=== PATIENT | male | born 1990 | race Caucasian/White ===

== ENCOUNTER 2017-05-15 08:08 | Emergency (ER) | payer OTHER ==
[~2017-05-15] VITALS: Ht 182.9 cm; Wt 68.2 kg
[2017-05-15 08:11] VITALS: BP 120/79; PULSE 74; RESP 16; O2SAT 100
[2017-05-15] MEDS ORDERED: 0.9% Sodium Chloride 1,000 ML IV ONE ×3 (08:30→13:20)
[2017-05-15] MEDS ORDERED: Ondansetron 2 mg/mL 2 mL Inj IVPUSH ONE ×2 (08:30→12:45)
--- NOTE | 2017-05-15 08:34 | ED.REPORT ---
HPI-Abd Pain M Under 40 Date of Service May 15, 2017 ED Provider: Wendy Acevedo MD Patient is a 26-year-old man with no significant past medical history who presents to the emergency department with acute onset vomiting and tight feeling abdominal pain with radiation into his throat that started this morning. She has associated chills, nausea, lightheadedness, and feels like it is difficult to take a deep breath. He had similar symptoms approximately 3 years ago at which time he was not using marijuana daily. He describes his pain as epigastric radiating up into his throat. The pain briefly improved after vomiting however worsens again when he tries to stand up or lay down. He did have one softer than normal stool this morning. He has no headache, visual changes, hematemesis Nursing Notes Stated Complaint: VOMITING Chief Complaint: Male Abdominal Pain Nursing Notes Reviewed: Yes Allergies: Coded Allergies: cyclobenzaprine (Verified Allergy, Unknown, restless, 05/15/17) Scheduled PRN Ondansetron ODT (Ondansetron ODT) 4 Mg Tab.rapdis 4 MG PO BID PRN PRN For Nausea General Time Seen by MD: 08:15 Chief Complaint Abdominal pain, Vomiting moderate Hx Obtained From: Patient Arrived By: Walk-in Sudden in Onset?: Yes Onset Occurred: Just prior to arrival Past Medical History Past Medical History Denies Past Surgical History Denies Family History No known family history of heart disease or early NM Smoking History Former Smoker Social History Alcohol Use: "Social" Drug Use: THC Ambulatory Status Independent Review of Systems A comprehensive review of systems was conducted with the patient and found to be negative except as above in the History of Present Illness. Physical Exam Initial Vital Signs Vital Signs (First) Date Time Temp Pulse Resp B/P Pulse Ox O2 Delivery O2 Flow Rate FiO2 05/15/17 08:11 36.6 74 16 120/79 100 05/15/17 12:51 Room Air Initial VS: Reviewed, Vital signs normal Head / Eyes: Atraumatic, Normocephalic, PERRL ENT: Mucous membranes moist, Conjunctiva normal, No scleral icterus Neck: Supple, Non-tender Lymphatic: No lymphadenopathy Extremities: Vascular intact, Neuro intact, No swelling, No tenderness Skin: Warm, No cyanosis Neurologic: Alert, Oriented, Nonfocal Psychiatric: Mood/affect normal, Behavior normal, Normal thought content General/Constitutional: Awake, Alert Distress / Hydration: Positive: Distress moderate (dry heaving with some emesis during exam) Respiratory / Chest: Breath sounds NL, Breath sounds = bilat, No respiratory distress, No rales, No rhonchi, No wheezing, No stridor Cardiovascular: Heart rate NL, Regular rhythm, Heart sounds NL Abdomen: Atraumatic, Soft Tenderness/Guarding/Rebound: Positive: Guarding voluntary, Tender diffuse Interpretation & Diagnostics Leukocytosis of 13.4 with left shift. Glucose elevated at 163, likely a stress reaction. Lipase normal 21. Hepatic and renal function are normal on CMP. Lab Results Interpretation Result Diagram: 05/15/17 0915 05/15/17 0915 Test 05/15/17 09:15 05/15/17 10:50 White Blood Count 13.4th/mm3 (3.8-10.1) Red Blood Count 5.46mil/mm3 (4.40-5.80) Hemoglobin 16.6g/dL (13.8-17.2) Hematocrit 46.3% (41.0-50.0) Mean Corpuscular Volume 84.8fL (81-100) Mean Corpuscular Hemoglobin 30.4pg (27.0-35.0) Mean Corpuscular Hemoglobin Concent 35.9% (32.0-37.0) Red Cell Distribution Width 12.4% (12.3-15.4) Platelet Count 258bil/L (150-400) Neutrophils (%) (Auto) 85.1% (40-74) Lymphocytes (%) (Auto) 11.0% (14-46) Monocytes (%) (Auto) 3.3% (4-12) Eosinophils (%) (Auto) 0.3% (0-5) Basophils (%) (Auto) 0.1% (0-3) Sodium Level 141mEq/L (134-144) Potassium Level 4.8mEq/L (3.5-5.2) Chloride Level 102mEq/L (97-108) Carbon Dioxide Level 24mmol/L (18-29) Blood Urea Nitrogen 16mg/dL (6-20) Creatinine 0.82mg/dL (0.76-1.27) Estimat Glomerular Filtration Rate 122mL/min (>59) Glucose Level 163mg/dL (60-99) Calcium Level 9.9mg/dL (8.5-10.1) Total Bilirubin 0.3mg/dL (0.0-1.2) Aspartate Amino Transf (AST/SGOT) 26U/L (0-50) Alanine Aminotransferase (ALT/SGPT) 28U/L (0-44) Alkaline Phosphatase 75U/L (25-150) Total Protein 8.2g/dL (6.4-8.4) Albumin 5.0g/dL (3.4-5.0) Lipase 21U/L (13-60) Urine Color Yellow (YELLOW) Urine Appearance Hazy (CLEAR,HAZY) Urine pH 6.5 (5.0-8.0) Urine Specific [place] 1.025 (1.003-1.035) Urine Protein Tracemg/dL (NEG,TRACE) Urine Glucose (UA) Negativemg/dL (NEGATIVE) Urine Ketones Negativemg/dL (NEGATIVE) Urine Occult Blood Trace (NEGATIVE) Urine Nitrite Negative (NEGATIVE) Urine Bilirubin Negative (NEGATIVE) Urine Urobilinogen Normalmg/dL (NORMAL) Urine Leukocyte Esterase Negative (NEGATIVE) Urine RBC 3-10/hpf (0-2) Urine WBC 0-5/hpf (0-5) Urine Epithelial Cells Occasional/hpf (NONE-MOD) Urine Crystals None seen (NONE SEEN) Urine Bacteria None/hpf (NONE-FEW) Urine Hyaline Casts Occasional/lpf (NONE) Urine Granular Casts None seen (NONE SEEN) Urine Waxy Casts None seen (NONE SEEN) Urine Red Blood Cell Casts None seen (NONE SEEN) Urine White Blood Cell Casts None seen (NONE SEEN) Urine Mucus Present (None Seen) Urine Trichomonas None seen (NONE SEEN) Urine Yeast None (NONE SEEN) Urinalysis Comment None Urine Culture Reflexed Not indicated Hold Urine Received (Received) CT Abd / Pelvis Interpretation 1. No acute intra-abdominal findings. Normal appendix. 2. Mild periportal edema and trace pericholecystic fluid without gallbladder wall thickening. Study type: Abdominal CT IV contrast, Abdom CT oral contrast Interpretation / Wet Read by: Interpret - Radiologist Re-Eval/Medical Decision Med Decision/Clinical Course Patient is a 26-year-old man with no significant past medical history who presents to the emergency department with acute onset vomiting and tight feeling abdominal pain with radiation into his throat that started this morning. Laboratory evaluation shows normal transaminases and lipase. He has a mild leukocytosis with left shift. CT scan shows no evidence of acute appendicitis. There is some mild pericholecystic fluid, non-thickened gallbladder wall with normal LFTs making acute cholecystitis or hepatitis unlikely. Lipase was measured to be normal making acute pancreatitis less likely. Patient is most likely having an episode of gastroenteritis. He has been given 3 L of fluid, Phenergan, Zofran, and Dilaudid. He was offered overnight hospitalization for observation due to his nausea and vomiting and declined. Precautions for returning to the emergency department with hematemesis or unimproved symptoms in 72 hours were given. Patient encouraged to schedule primary care appointment before the end of the week. Re-Evaluation/Progress #1: Time of Eval: 09:30 )( Re-Eval Abdomen: No distention, Tenderness, Guarding (voluntary) Re-Evaluation/Progress Note: Patient had no change with time, still has 10/10 abdominal pain. Re-Evaluation/Progress #2: Time of Eval: 10:15 )( Re-Eval Abdomen: Tenderness, Guarding Re-Evaluation/Progress Note: Patient treated with Zofran, Protonix, and 0.5 mg Dilaudid without significant improvement. Patient continues to have chills, feels sick, and is having small volume yellow colored emesis as well. CT scan with oral contrast ordered. Re-Evaluation/Progress #3: Time of Eval: 14:00 Re-Evaluation/Progress Note: Patient is still having nausea and 10/10 abdominal pain. Briefly decreased down to 8/10 but has now increased again. Counseled Regarding: Diagnosis, Lab results, Need for follow-up, When/why to return to ED Patient Discharge & Departure Shift Change Sign-Out Response to Therapy: Improved Primary Impression: Epigastric pain Additional Impression: Nausea & vomiting Vomiting type: bilious vomiting Qualified Code: R11.14 - Bilious vomiting Disposition: Home Discharge Condition All VS Reviewed: Yes Condition: Stable Patient Instructions: Acute Abdominal Pain (ED) Additional Instructions: Thank you for entrusting us with your care today. You have a mildly elevated white blood cell count. Your CT scan shows no acute intra-abdominal findings and normal appendix. You do have some inflammation in your right upper quadrant. There is no need for surgical intervention at this time. You were offered hospital admission for monitoring and declined. Please do not hesitate to return to the emergency department if symptoms do not improve in 48-72 hours or you notice blood in your vomit. Please follow up by the end of the week at the residency clinic. I hope you feel better soon. Referrals: [facility] Attending Statement Patient seen and examined with Dr. Delgado Nausea vomiting abdominal pain and elevated white blood cell count. CT scan does not suggest significant pathology specifically no appendicitis no diverticulitis. There is a small amount of fluid around his gallbladder however a non-thickened gallbladder wall and normal LFTs. We will be discharged home at this point. Diagnosis of gastroenteritis. Will return if symptoms worsen Agree with Findings and documentation as above copies to: [facility] Sammi Delgado DO May 15, 2017 08:34 Wendy Acevedo MD May 15, 2017 15:16
[2017-05-15] MEDS ORDERED: HYDROmorphone 0.5 mg/0.5 mL iSecure Syringe IVPUSH ONE (08:50)
[2017-05-15] MEDS ORDERED: Pantoprazole 4 mg/mL 10 mL Inj IVPUSH ONE (08:50)
[2017-05-15 09:29] LABS: BASOPHILS % (AUTO) 0.1 % (0-3); EOSINOPHILS % (AUTO) 0.3 % (0-5); MONOCYTES % (AUTO) 3.3 % (4-12); Mean Corpuscular Hemoglobin 30.4 pg (27.0-35.0); Mean Corpuscular Volume 84.8 fL (81-100); NEUTROPHILS % (AUTO) 85.1 % (40-74); Platelet Count 258 bil/L (150-400)
[2017-05-15] MEDS ORDERED: HYDROmorphone 0.5 mg/0.5 mL iSecure Syringe IVPUSH PRN (10:25)
[2017-05-15] MEDS ORDERED: Iohexol 300 mg/mL 30 mL Inj PO ONE (10:25)
[2017-05-15] MEDS ORDERED: Promethazine Inj 50 MG in 0.9% Sodium Chloride-Pha MIX 100 ML IV ONE (10:25)
--- NOTE | 2017-05-15 12:49 | DRSVH ---
PROCEDURE: CT ABDOMEN AND PELVIS WITH CONTRAST ([id number]) INDICATIONS: pain TECHNIQUE: After the administration of oral and intravenous contrast, 5 mm thick sections acquired from the diap hragms to the symphysis. 5 mm thick coronal and sagittal reformats were performed. For radiation do se reduction, the following was used: automated exposure control, adjustment of mA and/or kV accordi ng to patient size. COMPARISON: None. FINDINGS: Image quality: Excellent. ABDOMEN: Lung bases: Lung bases are clear. Heart size is normal. Solid organs: Liver and spleen are normal in size and enhancement. There is incidentally noted mild periportal edema. Gallbladder is thin walled. There is trace pericholecystic fluid.. Biliary system is non-dilated. Pancreas enhances normally. No adrenal nodules. Kidneys are normal in size and en hancement, without hydronephrosis. Peritoneum and bowel: Stomach, small bowel, and colon loops are normal in caliber and wall thickness . The appendix is thin walled and gas filled. There are scattered sigmoid diverticula. No evidence fo r diverticulitis. No free fluid or air. Nodes and vessels: No retroperitoneal or mesenteric adenopathy. Aorta and inferior vena cava are no rmal in caliber. Miscellaneous: No ventral hernias. PELVIS: Genitourinary: Bladder wall thickness is normal. Miscellaneous: No inguinal hernias or adenopathy. Bones: No suspicious bony lesions. No vertebral body compression fractures. IMPRESSION: 1. No acute intra-abdominal findings. Normal appendix. 2. Mild periportal edema and trace pericholecystic fluid without gallbladder wall thickening. Please correlate with clinical history and laboratory values. Acute hepatitis or early acute cholecystitis c annot be excluded. These findings were discussed with Dr. Acevedo at 12:43 PM on . Dictated by: Sharmila Guajardo M.D. on 05/15/2017 at 12:37 Approved by: Sharmila Guajardo M.D. on 05/15/2017 at 12:47
[2017-05-15 12:51] VITALS: BP 131/81; PULSE 59; RESP 16; O2SAT 100
[2017-05-15 13:20] LABS: APPEARANCE,URINE HAZY (CLEAR,HAZY); COLOR,URINE YELLOW (YELLOW); OCCULT BLOOD,URINE TRACE (NEGATIVE); PH,URINE 6.5 (5.0-8.0); UROBILINOGEN,URINE NORMAL (NORMAL)
[2017-05-15] MEDS ORDERED: ONDA4TAB12 PO (14:43)
[2017-05-15 15:14] VITALS: BP 130/81; PULSE 60; RESP 16; O2SAT 100
== END 2017-05-15 15:15 | disposition home or self-care (01) ==
LOC: SED 08:08
DX: R10.13 Epigastric pain (principal); R11.14 Bilious vomiting; Z87.891 Personal history of nicotine dependence
CPT/HCPCS: 36415; 74177; 80053; 81000; 83690; 85025; 96361; 96365; 96375; 96376; 99285; J1170; J2405; J2550; J7030; Q9967